=== PATIENT | female | born 1965 | race Hispanic/Latino ===

== ENCOUNTER → 2021-01-21 | Day surgery (SDC) | payer BC ==
[2021-01-19 12:24] LABS: CALCIUM 8.8 mg/dL (8.4-10.2); CREATININE, SERUM 0.94 mg/dL (0.57-1.11)
[~2021-01-21] MED LIST: BUPIVACAINE HCL 0.5% INJ 30 ML VIAL INJ ONE; LEVOTHYROXINE125 MCG PO; LIPITOR10 MG PO; SODIUM CHLORIDE 0.9% 50ML 100 ML ONE; SYNJARDY XR 121 EACH PO
[2021-01-21 09:27] VITALS: BP 107/65
== END | disposition home or self-care (01) ==
LOC: OR 06:13
PROVIDERS: ATTEND Specialist
DX: M67.441 Ganglion, right hand (principal); M19.041 Primary osteoarthritis, right hand; E07.9 Disorder of thyroid, unspecified; E11.9 Type 2 diabetes mellitus without complications; Z01.810 Encounter for preprocedural cardiovascular examination; Z01.812 Encounter for preprocedural laboratory examination; Z20.822 Contact with and (suspected) exposure to COVID-19; Z79.84 Long term (current) use of oral hypoglycemic drugs
CPT/HCPCS: 26160; 36415 ×2; 80048; 82948; 88304; 93005; J0690; U0002